=== PATIENT | female | born 1975 | race Caucasian/White ===

== ENCOUNTER 2021-09-07 11:00 | Emergency (ER) | payer OTHER ==
--- NOTE | 2021-09-07 14:36 | XR ---
EXAMINATION TYPE: XR hand complete RT DATE OF EXAM: 09/07/2021 COMPARISON: None HISTORY: Hand numbness TECHNIQUE: 3 view right hand FINDINGS: No acute fractures or dislocations are evident. Joint spaces are preserved. Soft tissues ar e normal. Follow-up exams can be performed 7-10 days from acute trauma for continued pain. MRI of the wrist could be performed if there is clinical concern for carpal tunnel syndrome. IMPRESSION: 1. No acute osseous abnormality right hand
[2021-09-07 14:37] VITALS: BP 143/82; PULSE 72; RESP 18; TEMP 97.9
--- NOTE | 2021-09-07 15:06 | ED ---
General Adult HPI - General Chief complaint: Extremity Injury, Upper Stated complaint: Rt hand pain Time Seen by Provider: 09/07/21 13:32 Source: patient, RN notes reviewed Mode of arrival: ambulatory Limitations: no limitations - History of Present Illness Initial comments: 45-year-old female presents for right hand pain and tingling. Patient states f or the past couple months she has had tingling in the first 4 fingers of the right hand. patient has pain in the palm of the right hand that radiates up the fingers as well. Patient states her symptoms are worse when she is waking up in the morning. 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 Denies any injuries. Patient has no other complaints at this time including shortness of breath, chest pain, abdominal pain, nausea or vomiting, headache, or visual changes. - Related Data Allergies Allergy/AdvReac Type Severity Reaction Status Date / Time Penicillins Allergy Rash/Hives Verified 09/07/21 11:09 Review of Systems ROS Statement: Those systems with pertinent positive or pertinent negative responses have been documented in the HPI. ROS Other: All systems not noted in ROS Statement are negative. Past Medical History Past Medical History: No Reported History History of Any Multi-Drug Resistant Organisms: None Reported Past Surgical History: No Surgical Hx Reported Past Psychological History: No Psychological Hx Reported Smoking Status: Current every day smoker Past Alcohol Use History: None Reported Past Drug Use History: None Reported General Exam Limitations: no limitations General appearance: alert, in no apparent distress Head exam: Present: atraumatic Eye exam: Present: normal appearance, PERRL, EOMI. Absent: scleral icterus, conjunctival injection ENT exam: Present: normal exam, mucous membranes moist Neck exam: Present: normal inspection, full ROM. Absent: tenderness Respiratory exam: Absent: respiratory distress Extremities exam: Present: full ROM (Full range of motion of the right hand.), normal capillary refill (Capillary refill less than 2 seconds right hand. Radial pulse 2+.), other (Sensation intact in the digits of the right hand. Patient does have tenderness of the volar aspect of the right wrist. Positive Tinel sign.) Course Vital Signs 09/07/21 09/07/21 11:07 14:36 Temperature 98.5 F 97.9 F Pulse Rate 87 72 Respiratory 20 18 Rate Blood Pressure 164/90 143/82 O2 Sat by Pulse 98 95 Oximetry Medical Decision Making - Medical Decision Making X-ray of the right hand and wrist shows no acute osseous abnormality. Patient likely has Median cubital tunnel syndrome. We will supply an rx for a cock up wrist splint. She will f/u with orthopedics. She will return here for and worsening symptoms. Disposition Clinical Impression: Carpal tunnel syndrome, Paresthesia Disposition: HOME SELF-CARE Condition: Good Instructions (If sedation given, give patient instructions): Paresthesia (ED) Additional Instructions: Please follow up with orthopedics by calling Friday for the earliest appointment. Wear cock-up wrist splint at night for comfort. Return to the ER for any worsening symptoms. Is patient prescribed a controlled substance at d/c from ED?: No Referrals: Cortez Neves MD [Medical Doctor] - 1-2 days Time of Disposition: 15:01
[2021-09-07] MEDS ORDERED: ACETAMINOPHEN TAB 500 MG TAB PO STA (15:18)
== END 2021-09-07 15:31 | disposition home or self-care (01) ==
LOC: EC 11:00
DX: G56.01 Carpal tunnel syndrome, right upper limb (principal); F17.200 Nicotine dependence, unspecified, uncomplicated; Z88.0 Allergy status to penicillin
CPT/HCPCS: 99283